=== PATIENT | female | born 1945 | race Caucasian/White ===

== ENCOUNTER → 2017-01-21 | Outpatient (CLI) | payer MEDICARE, OTHER | END | disposition home or self-care (01) | LOC: GMAB 12:18 | PROVIDERS: ATTEND Family Medicine | DX: N18.4 Chronic kidney disease, stage 4 (severe) (principal) ==

== ENCOUNTER → 2017-04-23 | Outpatient (CLI) | payer MEDICARE, OTHER | END | disposition home or self-care (01) | LOC: LAB.O 15:06 | PROVIDERS: ATTEND Urology | DX: R31.9 Hematuria, unspecified (principal) ==

== ENCOUNTER → 2017-05-20 | Outpatient (CLI) | payer MEDICARE, OTHER | END | disposition home or self-care (01) | LOC: GMAB 15:00 | PROVIDERS: ATTEND Family Medicine | DX: N18.4 Chronic kidney disease, stage 4 (severe) (principal) ==

== ENCOUNTER → 2017-08-28 | Outpatient (CLI) | payer MEDICARE, OTHER | LOC: GMAB 09:39 | PROVIDERS: ATTEND Family Medicine | DX: E03.9 Hypothyroidism, unspecified (principal); N18.4 Chronic kidney disease, stage 4 (severe); E78.2 Mixed hyperlipidemia; I10 Essential (primary) hypertension ==

== ENCOUNTER → 2018-08-24 | Outpatient (CLI) | payer MEDICARE, OTHER | LOC: GMAE 10:56 | PROVIDERS: ATTEND Family Medicine | DX: E03.9 Hypothyroidism, unspecified (principal) ==

== ENCOUNTER 2019-05-25 09:27 | Emergency (ER) | payer MEDICARE, OTHER ==
[2019-05-25 09:50] VITALS: TEMP 98.1
--- NOTE | 2019-05-25 09:52 | ED.PDOC ---
History of Present Illness - General Chief Complaint: Post Op Problems Stated Complaint: discomfort/edema to left leg Time Seen by Provider: 05/25/19 09:45 Source: patient, family Exam Limitations: no limitations - History of Present Illness Initial Comments: Pt states she had arterial stent placed in left leg on 05/20/[address] Galicia in [facility]. States she has been doing well and has noticed left leg edema that began 2 days after the procedure. Denies pain to leg, CP, SOB, cold foot or any color change. Has been ambulating w/o difficulty. Talked to Dr. Galicia today and was told to come to ED and have US to r/o blood clot. Allergies/Adverse Reactions: Allergies NO KNOWN ALLERGY Allergy (Verified 05/25/19 09:45) Home Medications: Ambulatory Orders Amlodipine Besylate 5 mg PO DAILY 05/25/19 RX: Clopidogrel Bisulfate 75 mg PO DAILY 05/25/19 Rosuvastatin Calcium 40 mg PO DAILY 05/25/19 Review of Systems - Review of Systems Constitutional: Denies: chills, fever, weakness EENTM: Denies: blurred vision, nose congestion, throat pain Respiratory: Denies: cough, short of breath Cardiology: States: edema - left leg. Denies: chest pain, palpitations, syncope Gastrointestinal/Abdominal: Denies: abdominal pain, diarrhea, vomiting Musculoskeletal: Denies: back pain, joint pain, muscle pain All other Systems: Reviewed and Negative Family Medical History - Family History Mother Family History: Unknown Physical Exam - Physical Exam General Appearance: Alert, Comfortable, No apparent distress Ears, Nose, Throat: normal ENT inspection, normal pharynx Neck: non-tender, full range of motion, supple Respiratory: chest non-tender, lungs clear, normal breath sounds, no respiratory distress, no accessory muscle use Cardiovascular/Chest: regular rate, rhythm, no murmur Gastrointestinal/Abdominal: non tender, soft Back Exam: normal inspection, no CVA tenderness Extremity: other - There is trace pretibial edema on left. Palpable PT and DP luses blaterally. No color or temperature difference between legs. Progress - Progress Progress: 05/25/19 09:54 Pt reports arterial stent to LLE 05/20. presents today for edema to LLE for several days and told by her Thermospray Operator to get US to R/O DVT. No temperature or clor change. Denies pain. Palpable pulses. will get US to evaluate. 05/25/19 10:45 Duplex US negative for DVT. Discussed with patient to elevate legs and will f/u with Dr. Galicia in 2-3 days for recheck. SRP given. - Results/Orders Results/Orders: CLINICAL HISTORY: r/o DVT. Left leg pain swelling. COMPARISON: None Available. TECHNIQUE: Soto-scale and doppler sonographic evaluation of the deep venous system of the left lower extremity. FINDINGS: Doppler evaluation shows normal color flow and normal phasicity and augmentation of the left common femoral vein, femoral vein, popliteal vein, greater saphenous vein, junction with the CFV. Also normal color flow and normal phasicity and augmentation of the peroneal, and posterior tibial vein. The left lower extremity deep veins were completely compressible; normal occlusion with transducer pressure. Soto-scale survey showed no echogenic thrombus within these veins. IMPRESSION: 1. Duplex ultrasound evaluation of the left lower extremity deep venous system showing no evidence of thrombosis. Departure - Departure Clinical Impression: Leg edema, left, PVD (peripheral vascular disease) Time of Disposition: 10:44 Disposition: Discharge to Home or Self Care Condition: Fair Departure Forms: ED Discharge - Pt. Copy, Patient Portal Self Enrollment Instructions: Dependent Edema (DC) Activity: increase activity as tolerated Referrals: ADRIANNE MANE MD [Primary Care Provider] - 1-2 Weeks Home Medications: Ambulatory Orders Amlodipine Besylate 5 mg PO DAILY 05/25/19 RX: Clopidogrel Bisulfate 75 mg PO DAILY 05/25/19 Rosuvastatin Calcium 40 mg PO DAILY 05/25/19 Comments: Follow up with Dr. Galicia in 2-3 days for recheck
--- NOTE | 2019-05-25 10:33 | US ---
EXAM DESCRIPTION: Venous,Lower Extremity LT: ULTRASOUND. CLINICAL HISTORY: r/o DVT. Left leg pain swelling. COMPARISON: None Available. TECHNIQUE: Soto-scale and doppler sonographic evaluation of the deep venous system of the left lower extremity. FINDINGS: Doppler evaluation shows normal color flow and normal phasicity and augmentation of the left common femoral vein, femoral vein, popliteal vein, greater saphenous vein, junction with the CFV. Also normal color flow and normal phasicity and augmentation of the peroneal, and posterior tibial vein. The left lower extremity deep veins were completely compressible; normal occlusion with transducer pressure. Soto-scale survey showed no echogenic thrombus within these veins. IMPRESSION: 1. Duplex ultrasound evaluation of the left lower extremity deep venous system showing no evidence of thrombosis. Electronically signed by: Jose Ribera MD 05/25/2019 10:31 AM [facility]
[2019-05-25 10:53] VITALS: BP 132/81; O2SAT 95
== END 2019-05-25 11:00 | disposition home or self-care (01) ==
LOC: ER 09:27
DX: R60.0 Localized edema (principal); I73.9 Peripheral vascular disease, unspecified; Z98.890 Other specified postprocedural states

== ENCOUNTER 2019-08-24 08:45 | Emergency (ER) | payer MEDICARE, OTHER ==
[2019-08-24 09:09] VITALS: TEMP 97.5
--- NOTE | 2019-08-24 10:10 | ED.PDOC ---
History of Present Illness - General Chief Complaint: Back Pain or Injury Stated Complaint: right sided low back pain Time Seen by Provider: 08/24/19 09:08 Source: patient Exam Limitations: no limitations - History of Present Illness Initial Comments: RIGHT LBP. LIFTED MATTRESS 1 WK AGO THUS SORE. HAD DEEP TISSUE MASSAGE YESTERDAY. WORSE TODAY. HURTS W/ MVMT. USUALLY WALKS 5 ME PER DAY FOR EXERCISE AND WATER AEROBICS 2X/ WK. Quality/Severity: moderate Back Pain Location: lumbar spine Method of Injury/Prior Injury: unknown Improving Factors: immobilization Worsening Factors: movement Associated Symptoms: denies symptoms Allergies/Adverse Reactions: Allergies NO KNOWN ALLERGY Allergy (Verified 05/25/19 09:45) Home Medications: Ambulatory Orders Amlodipine Besylate 5 mg PO DAILY 05/25/19 Clopidogrel Bisulfate 75 mg PO DAILY 05/25/19 Rosuvastatin Calcium 40 mg PO DAILY 05/25/19 Review of Systems - Review of Systems Constitutional: States: no symptoms reported EENTM: States: no symptoms reported Respiratory: States: no symptoms reported Cardiology: States: no symptoms reported. Denies: chest pain Gastrointestinal/Abdominal: States: no symptoms reported. Denies: abdominal pain Genitourinary: States: no symptoms reported Musculoskeletal: States: see HPI, back pain. Denies: neck pain Skin: States: no symptoms reported Neurological: Denies: numbness, paresthesia, tingling Endocrine: States: no symptoms reported Hematologic/Lymphatic: States: no symptoms reported All other Systems: Reviewed and Negative Past Medical History (General) - Patient Medical History Hx Seizures: No Hx Stroke: No Hx Asthma: No Hx of COPD: No Hx Cardiac Disorders: Yes Hx Congestive Heart Failure: No Hx Pacemaker: No Hx Hypertension: Yes Hx Thyroid Disease: No Hx Diabetes: No Surgical History: Hysterectomy - Vaccination History Hx Influenza Vaccination: Yes Hx Pneumococcal Vaccination: Yes - Social History Hx Tobacco Use: Yes Family Medical History - Family History Mother Family History: Unknown Physical Exam - Physical Exam General Appearance: Alert, Well Groomed Eyes, Ears, Nose, Throat Exam: normal ENT inspection Neck Exam: full range of motion, normal inspection Cardiovascular/Respiratory: regular rate, rhythm, no M/R/G, normal peripheral pulses, no JVD, normal breath sounds, no respiratory distress Peripheral Pulses: radial,right: 2+, radial,left: 2+ Gastrointestinal/Abdominal: normal bowel sounds, non tender, soft Back Exam: normal inspection, no CVA tenderness, decreased range of motion, muscle spasm, vertebral tenderness - RIGHT SI JOINT TTP. , other - POS R-SIDED: STRAIGHT LEG RAISE, TUNDE (FLEXION, ABDUCTION, EXTERNAL ROTATION), AND FADIR (FLEXION, ADDUCTION, INTERNAL ROTATION). Extremity Exam: no evidence of injury, normal range of motion, non-tender, no pedal edema Neurologic: transfer professor II-XII nml as tested, no motor/sensory deficits - MOTOR JUST LIMITED BY PAIN., alert, normal mood/affect Skin Exam: normal color, warm/dry Progress - Progress Progress: 08/24/19 10:27 PT DECLINES PAIN MED OFFER. 08/24/19 11:42 XRAYS NEG FOR ACUTE FRACTURE. POS CHRONIC O.A. LOW BACK STRAIN - REST, NSAIDS. Departure - Departure Clinical Impression: Facet arthropathy, lumbosacral, Spondylosis Acute lumbar myofascial strain Qualifiers: Encounter type: initial encounter Qualified Code(s): S39.012A - Strain of muscle, fascia and tendon of lower back, initial encounter Disposition: Discharge to Home or Self Care Condition: Good Departure Forms: ED Discharge - Pt. Copy, Patient Portal Self Enrollment Instructions: DI for Back Strain or Sprain Diet: resume usual diet Activity: increase activity as tolerated Referrals: ADRIANNE MANE MD [Primary Care Provider] - 1-2 Weeks Home Medications: Ambulatory Orders Amlodipine Besylate 5 mg PO DAILY 05/25/19 Clopidogrel Bisulfate 75 mg PO DAILY 05/25/19 Rosuvastatin Calcium 40 mg PO DAILY 05/25/19 Additional Instructions: Your daily 5 mile walk is outstanding. Just take a break from walking today and tomorrow to allow your back muscles to rest and heal, then resume your daily walking and water aerobics. Your back pain will improve with rest, time, and stretching exercises. Aleve or ibuprofen for 1 week will additionally help the pain.
--- NOTE | 2019-08-24 10:44 | RAD ---
EXAM DESCRIPTION: Lumbar Spine 3 Views: CR/DR/x-ray. CLINICAL HISTORY: 74 years Female pain in right lower back COMPARISON: None. TECHNIQUE: 3 Views lumbar spine. AP Lateral lumbosacral lateral spot L5-S1. FINDINGS: Lumbar type vertebra: 5. Transitional vertebrae: None. Disc spaces: Minimal disc space loss L5-S1. Anterior Endplate spurs at multiple levels.. Facet joints: Marked Sclerosis and narrowing bilateral L4-5 and bilateral L5-S1. Minimal narrowing and sclerosis of the more superior facet joints.. Posterior fusion cement. Possible foraminal narrowing unilaterally or bilaterally at L4-L5 and L5-S1 Compression deformities: None.. Bone Density: Decreased. Alignment: Lumbar levoscoliosis. Grade 1 Retrolisthesis L5-S1 and grade 1 anterolisthesis L4-L5. Abdomen: Dense atherosclerotic calcification of the abdominal aorta and proximal bilateral common iliac arteries. IMPRESSION: Decreased bone density. Multilevel facet arthrosis most severe at L4-5 and L5-S1, with suggestion of fusion cement. Grade 1 retrolisthesis L5-S1 and grade 1 anterolisthesis L4-L5. Endplate spondylosis L2-3 down to L5-S1. No compression type vertebral body fracture. Extensive atherosclerotic calcification of the abdominal aorta. Electronically signed by: Jose Ribera MD 08/24/2019 10:38 AM SECURITY AND COMPLIANCE ANALYST
[2019-08-24 11:56] VITALS: BP 147/72; O2SAT 97
== END 2019-08-24 11:55 | disposition home or self-care (01) ==
LOC: ER 08:45
DX: S39.012A Strain of muscle, fascia and tendon of lower back, initial encounter (principal); M47.817 Spondylosis without myelopathy or radiculopathy, lumbosacral region; I10 Essential (primary) hypertension; I51.9 Heart disease, unspecified; X50.0XXA Overexertion from strenuous movement or load, initial encounter; Y92.9 Unspecified place or not applicable; Z87.891 Personal history of nicotine dependence

== ENCOUNTER 2019-11-22 15:32 | Emergency (ER) | payer MEDICARE, OTHER ==
[2019-11-22] MEDS ORDERED: SODIUM CHLORIDE 0.9% (FLUSH) 10 ML SYG IV PRN (15:34)
[2019-11-22] MEDS ORDERED: ACETAMINOPHEN 500 MG TAB PO ONE (15:43)
--- NOTE | 2019-11-22 15:46 | ED.PDOC ---
History of Present Illness - General Time Seen by Provider: 11/22/19 15:33 Source: patient - History of Present Illness Initial Comments: 74 yo female with PMH of HTN who presents with cc of fall and head injury which occurred at home just [employer]. Reports tripped over a chainsaw case on the ground and fell forward and struck her Left forehead and left ear against the wall. Denies any LOC. Reports cc of pain to left forehead region, constant, 8/10 anh rity, throbbing, no radiation, worse with palpation, no meds taken for relief. Reports also a small bleeding laceration to the left ear. Denies any neck pain, weakness, numbness, vision/hearing changes, chest pain, dyspnea, abd pain, n/v, pelvic/hip pain, back pain. Takes daily aspirin but no other blood thinners. Unsure of date of last tetanus imm. Allergies/Adverse Reactions: Allergies NO KNOWN ALLERGY Allergy (Verified 11/22/19 15:43) Home Medications: Ambulatory Orders Amlodipine Besylate 5 mg PO DAILY 05/25/19 Clopidogrel Bisulfate 75 mg PO DAILY 05/25/19 Rosuvastatin Calcium 40 mg PO DAILY 05/25/19 Cephalexin Monohydrate [Keflex] 500 mg PO BID 5 Days #10 cap 11/22/19 Ondansetron Odt [Zofran ODT] 8 mg PO Q8H PRN 3 Days #10 tab 11/22/19 Review of Systems - Review of Systems Review of Systems: 11/22/19 15:46 as per HPI All other Systems: Reviewed and Negative Past Medical History (General) - Patient Medical History Hx Seizures: No Hx Stroke: No Hx Asthma: No Hx of COPD: No Hx Cardiac Disorders: Yes Hx Congestive Heart Failure: No Hx Pacemaker: No Hx Hypertension: Yes Hx Thyroid Disease: No Hx Diabetes: No - Vaccination History Hx Influenza Vaccination: Yes Hx Pneumococcal Vaccination: Yes - Social History Hx Tobacco Use: Yes Family Medical History - Family History Mother Family History: Unknown Physical Exam - Physical Exam General Appearance: Alert, Comfortable, No apparent distress Eye Exam: bilateral normal Ears, Nose, Throat: hearing grossly normal, normal pharynx, other - Left ear with 2 parallel approx 1.5 cm superficial linear vertical lacerations, the more lateral laceration with constant slow bleeding which ceases with pressure Neck: non-tender, full range of motion, supple, normal inspection, other - Head: approx 4x4 cm hematoma to left forehead with moderate ttp and bruising. Respiratory: chest non-tender, lungs clear, normal breath sounds, no respiratory distress, no accessory muscle use Cardiovascular/Chest: normal peripheral pulses, regular rate, rhythm, no edema, no gallop, no JVD, other - 2/6 systolic murmur best heard at LLSB Peripheral Pulses: radial,right: 2+, radial,left: 2+ Gastrointestinal/Abdominal: non tender, soft, no organomegaly Back Exam: normal inspection, no CVA tenderness, no vertebral tenderness Extremity: normal range of motion, non-tender, normal inspection, no pedal edema, no calf tenderness Neurologic: evp and chief operating officer II-XII nml as tested, no motor/sensory deficits, alert, normal mood/affect, oriented x 3 Skin Exam: normal color, warm/dry Progress - Progress Progress: 11/22/19 15:48 GLF, closed head injury -with pain to: L forehead -also with Left ear laceration -consider: ICH, c-spine frx, skull frx, concussion, other injuries. Fall appears mechanical in nature, consider organic etiologies but appears unlikely. -obtain CT head & c-spine, CXR, EKG, bloodwork -Tylenol 1000 mg for pain -repair ear lac, ensure tetanus imm UTD 11/22/19 17:05 -Left ear lacs cleansed copiously with Hibiclens and repaired without complication at bedside with Dermabond. Hemostasis achieved. -CT head & c-spine w/o acute processes. Chronic findings noted and I discussed these in detail with the patient to f/u with her PCP. -CXR with interstitial opacity of Right lower lobe, which I suspect is likely chronic scarring. Doubt PNA given lack of cough, fevers and with normal WBC. Will hold Abx at this time. -Labs with UA with 40-50 WBC, +nitrites concerning for UTI - will place on Keflex 500 mg BID x5 days, first dose here. K 3.1 (replenished PO in ED). Cr 1.4, which appears c/w baseline CKD. Remainder of labs pretty unremarkable. -Tetanus imm given. -Pt had some nausea but much improved with oral Zofran in ED. KOTHARI improving with Tylenol. Discussed possibility of concussion and will need to be very careful to avoid repeat head injury, benton in the near future. -dc to home in good condition. Advised strict head injury return precautions. F/u closely with PCP. Trino Zaman MD Billing #[id number] 11/22/19 15:34 Telemetry .ONCE Sodium Chloride 0.9% (Flush) [Saline Flush Syringe] 10 ml IV PRN PRN EKG Assessment ONCE Pulse Oximetry Assessment DAILY Chest,1 View [RAD] Stat 11/22/19 15:42 Cervical Spine [CT] Stat Head [CT] Stat 11/22/19 15:45 EKG STAT 11/22/19 16:14 Urine Culture Stat 11/23/19 09:00 Pulse Ox Daily Laboratory Results - last 24 hr 11/22/19 11/22/19 11/22/19 15:45 15:45 15:45 WBC 7.6 RBC 4.48 Hgb 13.0 Hct 37.5 MCV 83.7 MCH 28.9 MCHC 34.6 RDW 15.6 H Plt Count 290 MPV 6.3 L Absolute Neuts (auto) 3.30 Absolute Lymphs (auto) 3.10 Absolute Monos (auto) 0.80 Absolute Eos (auto) 0.30 Absolute Basos (auto) 0.00 Neutrophils % 43.9 Lymphocytes % 40.3 Monocytes % 11.1 H Eosinophils % 4.5 Basophils % 0.2 PT 10.3 INR 1.04 PTT (SP) 20.4 L Sodium Potassium Chloride Carbon Dioxide Anion Gap BUN Creatinine BUN/Creatinine Ratio Random Glucose Serum Osmolality Calcium Troponin I B-Natriuretic Peptide 182.0 H Urine Color Urine Appearance Urine pH Ur Specific [place] Urine Protein Urine Glucose (UA) Urine Ketones Urine Blood Urine Nitrite Urine Bilirubin Urine Urobilinogen Ur Leukocyte Esterase Urine RBC Urine WBC Ur Epithelial Cells Urine Bacteria 11/22/19 11/22/19 11/22/19 15:45 15:45 16:14 WBC RBC Hgb Hct MCV MCH MCHC RDW Plt Count MPV Absolute Neuts (auto) Absolute Lymphs (auto) Absolute Monos (auto) Absolute Eos (auto) Absolute Basos (auto) Neutrophils % Lymphocytes % Monocytes % Eosinophils % Basophils % PT INR PTT (SP) Sodium 134 L Potassium 3.1 L Chloride 102 Carbon Dioxide 22 Anion Gap 13.1 BUN 37 H Creatinine 1.43 H BUN/Creatinine Ratio 25.9 H Random Glucose 112 H Serum Osmolality 277.7 Calcium 9.4 Troponin I 0.02 B-Natriuretic Peptide Urine Color Dk yellow H Urine Appearance Cloudy Urine pH 6.0 Ur Specific [place] 1.025 Urine Protein 30 Urine Glucose (UA) Negative Urine Ketones Negative Urine Blood Trace-intact H Urine Nitrite Positive H Urine Bilirubin Negative Urine Urobilinogen 0.2 Ur Leukocyte Esterase Small H Urine RBC 0-1 Urine WBC 40-50 H Ur Epithelial Cells 1-3 Urine Bacteria 3+ H - EKG/XRAY/CT EKG: Sinus - NSR with occasional PACs, HR 90, no ST elevs, q waves noted in anteroseptal leads indicative of likely prior PA, min ST segment depressions in lateral leads nonspecific in nature, axis & intervals normal, no prior EKG for comparison XRAY: chest - question Right lower lobe interstitial infiltrate vs atelectasis vs scarring per my read, no other acute processes noted Procedures - Laceration/Wound Repair Left Ear Wound's Depth, Shape: superficial, linear Wound Explored: clean Betadine Prep?: No - Hibiclens Wound Repaired With: dermabond Departure - Departure Clinical Impression: Fall from ground level Traumatic hematoma of forehead Qualifiers: Encounter type: initial encounter Qualified Code(s): S00.83XA - Contusion of other part of head, initial encounter Closed head injury Qualifiers: Encounter type: initial encounter Qualified Code(s): S09.90XA - Unspecified injury of head, initial encounter Laceration of ear Qualifiers: Encounter type: initial encounter Laterality: left Qualified Code(s): S01.312A - Laceration without foreign body of left ear, initial encounter UTI (urinary tract infection) Qualifiers: Urinary tract infection type: acute cystitis Hematuria presence: without hematuria Qualified Code(s): N30.00 - Acute cystitis without hematuria Time of Disposition: 16:59 Disposition: Discharge to Home or Self Care Condition: Fair Instructions: Laceration Repair With Glue (DC), Closed Head Injury (DC) Diet: resume usual diet Activity: increase activity as tolerated Referrals: ADRIANNE MANE MD [Primary Care Provider] - 1-2 Weeks Prescriptions: Cephalexin Monohydrate [Keflex] 500 mg PO BID 5 Days #10 cap Ondansetron Odt [Zofran ODT] 8 mg PO Q8H PRN 3 Days #10 tab PRN Reason: Nausea Home Medications: Ambulatory Orders Amlodipine Besylate 5 mg PO DAILY 05/25/19 Clopidogrel Bisulfate 75 mg PO DAILY 05/25/19 Rosuvastatin Calcium 40 mg PO DAILY 05/25/19 Cephalexin Monohydrate [Keflex] 500 mg PO BID 5 Days #10 cap 11/22/19 Ondansetron Odt [Zofran ODT] 8 mg PO Q8H PRN 3 Days #10 tab 11/22/19 Additional Instructions: Remain well-hydrated and advance diet and activity level as tolerated. Continue taking Tylenol 650 mg every 6 hours as needed and ibuprofen 400 mg every 6 hours as needed for pain. Return if you develop any concerning symptoms such as rapidly worsening or severe headache, vision/hearing changes, weakness, numbness, confusion, trouble standing or walking, or other concerning symptoms.
[2019-11-22 15:47] VITALS: TEMP 96.5
[2019-11-22] MEDS ORDERED: POTASSIUM CHLORIDE 20 MEQ TAB PO ONE (16:10)
[2019-11-22] MEDS ORDERED: CHLORHEXIDINE GLUCONATE 4 % 15 ML UD TOP ONE (16:20)
[2019-11-22] MEDS ORDERED: CEPHALEXIN MONOHYDRATE 250 MG CAP PO ONE (16:32)
[2019-11-22] MEDS ORDERED: TETANUS,DIPHTHERIA,PERTUSSIS 1 EA SYG IM ONE (16:33)
--- NOTE | 2019-11-22 16:43 | RAD ---
EXAM DESCRIPTION: Chest,1 View: CR/DR/XR. CLINICAL HISTORY: 74 years Female ground level fall COMPARISON: CT scan of the neck and head on this visit. TECHNIQUE: ONE VIEW PORTABLE. AP 359 PM hours, upright position. FINDINGS: Interstitial markings bilaterally. Increased density in the right lung base compared to the left could represent a contusion versus a chronic density or focal infiltrate. Bilateral apical pleural thickening. Heart not enlarged mediastinum no widening. Bony vascularity not increased. Arthrosis in the shoulders and thoracic dextroscoliosis. No pneumothorax or pleural effusion. IMPRESSION: Bilateral interstitial process appears chronic. Focal density in the right base could represent scarring, focal contusion or focal infiltrate. Correlate with clinical findings. No pulmonary vascular congestion. No pleural effusion or pneumothorax. Electronically signed by: Jose Ribera MD 11/22/2019 4:42 PM CDT
[2019-11-22] MEDS ORDERED: ONDANSETRON ODT 8 MG TAB ONE (16:45)
[2019-11-22] MEDS ORDERED: ONDANSETRON ODT 8 MG TAB SL ONE (16:46)
--- NOTE | 2019-11-22 16:54 | CT ---
EXAM DESCRIPTION: Head: Computed Tomography. CLINICAL HISTORY: fall, closed head injury, no LOC COMPARISON: CT scan of the cervical spine and chest radiograph today. TECHNIQUE: Non-helical axial scans through the skull and brain, at 2 x 20 mm intervals, non-contrast. Coronal and sagittal 2.0 mm reconstructions. Total Exam DLP: 860 mGy-cm. This exam was performed according to our departmental dose-optimization program which includes automated exposure control, adjustment of the mA and/or kV according to patient size and/or. Use of iterative reconstruction technique; to reduce radiation dose to as low as reasonably achievable (ALARA). FINDINGS: No hemorrhage, no mass-effect, and no midline shift. Bilateral periventricular white matter low-density along the subcortical white matter low-density relatively symmetric in the cerebral hemispheres. No abnormal increased parenchymal density. Vascular calcifications anterior and posterior especially the left vertebral artery posteriorly.; physiologic calcifications in the pineal gland and choroid plexus. No effacement or displacement of the ventricles, CSF spaces, or subdural spaces. Extra-axial spaces abutting the vertex slightly prominent all 3 lobes No extra axial fluid collection or hemorrhage. No gross abnormalities of the bony calvarium. Large heterogeneous left frontal scalp mass with central low-density superior to the left arm Included paranasal sinuses and mastoid air cells are well - aerated. IMPRESSION: 1. No hemorrhage, no mass effect, no midline shift. Mild cortical atrophy. No extra-axial fluid or hemorrhage. Atherosclerotic vascular disease, especially the left vertebral artery. Periventricular white matter and subcortical white matter density changes most likely related to cerebral microvascular disease and/or aging. 2. CT scans are insensitive for detecting small CVAs in the first 24 hours after onset. Evaluation of the brain stem is also limited. If symptoms persist, consider NON-EMERGENT MRI scan of the brain with diffusion imaging. Electronically signed by: Jose Ribera MD 11/22/2019 4:52 PM CDT
--- NOTE | 2019-11-22 17:08 | CT ---
EXAM DESCRIPTION: Cervical Spine: Computed Tomography. CLINICAL HISTORY: 74 years Female fall, closed head injury, no LOC COMPARISON: None Available. TECHNIQUE: Spiral, axial 2.5 x 2.5 mm scans through the cervical spine without contrast. Coronal and sagittal 2.0 mm Reconstructions. No adverse reactions. Total Exam DLP: 336 mGy-cm. This exam was performed according to our departmental dose-optimization program which includes automated exposure control, adjustment of the mA and/or kV according to patient size and/or use of iterative reconstruction technique; to reduce radiation dose to as low as reasonably achievable (ALARA). FINDINGS: Arthrosis of the atlantoaxial joint, and the bilateral atlantoaxial occipital joints. Bilateral C1-C2 facets are unremarkable. Posterior bulge of soft tissue at the atlantoaxial joint but not abutting or compressing the cord. Multiple levels of unilateral or bilateral facet arthrosis predominantly C2-C3, C3-C4, C4-C5, C5-C6, and C6-C7. No perched or locked facets or facet fractures. No vertebral body compression type fractures or posttraumatic spondylolisthesis. Minimal disc space narrowing at C6-C7 with posterior disc bulge. No large disc protrusions or herniations into the canal or foramina with no soft tissue mass. Neural foraminal narrowing at multiple levels which appears chronic. Bilateral interstitial lung disease and pleural thickening and emphysematous parenchymal blebs more left than right. No paravertebral paracervical soft tissue mass. Included lymph nodes appear symmetric. No significant asymmetry of the airway. IMPRESSION: No CT evidence of acute posttraumatic abnormality of the cervical spine or soft tissues. 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 Bilateral apical lung disease. Please see chest radiographs today. Electronically signed by: Jose Ribera MD 11/22/2019 5:06 PM CDT
[2019-11-22 17:29] VITALS: BP 115/86; O2SAT 99
== END 2019-11-22 17:29 | disposition home or self-care (01) ==
LOC: ER 15:32
DX: S00.83XA Contusion of other part of head, initial encounter (principal); S09.90XA Unspecified injury of head, initial encounter; S01.312A Laceration without foreign body of left ear, initial encounter; N30.00 Acute cystitis without hematuria; I10 Essential (primary) hypertension; Z79.82 Long term (current) use of aspirin; Z87.891 Personal history of nicotine dependence; W01.0XXA Fall on same level from slipping, tripping and stumbling without subsequent striking against object, initial encounter; Y92.009 Unspecified place in unspecified non-institutional (private) residence as the place of occurrence of the external cause

== ENCOUNTER → 2020-06-28 | Outpatient (CLI) | payer MEDICARE, OTHER | LOC: GMAE 11:25 | PROVIDERS: ATTEND Family Medicine | DX: R30.0 Dysuria (principal); R07.82 Intercostal pain ==

== ENCOUNTER → 2020-07-04 | Outpatient (CLI) | payer MEDICARE, OTHER ==
--- NOTE | 2020-07-05 08:07 | US ---
EXAM DESCRIPTION: Abdomen,Complete: Ultrasound. CLINICAL HISTORY: 75 years Female INTERCOSTAL PAIN COMPARISON: None Available. TECHNIQUE: Transabdominal scanning: grayscale and Doppler modes. FINDINGS: Gallbladder: normal size, shape, echogenicity; no intraluminal stones or sludge. No fluid around the gallbladder. No wall thickening. 1.4 mm. Non-tender with transducer pressure. Common bile duct: caliber 4.5 mm within normal limits. Liver: normal echogenicity; contour liver capsule smooth where seen. No fluid around the liver. Intrahepatic biliary ducts normal caliber. Doppler hepatopedal flow and normal caliber portal vein 9 mm. Long axis right lobe 14.0 cm. Pancreas: normal size and echogenicity. Duct not seen. Complete abdominal aorta: Normal caliber from the proximal segment to the distal bifurcation.. Intimal wall atherosclerotic changes. IVC: visualized and normal caliber. Right kidney: long axis measures 10.5 cm; volume 72.1 mL.. Cortical echogenicity is normal. Cortical thickness 10 mm. No echogenic stones; no hydronephrosis. Left kidney: long axis measures 8.6 cm; volume 75.4 mL.. Cortical echogenicity tab. 11 mm cortical thickness.. No echogenic stones; no hydronephrosis. Spleen: Normal. No focal lesions.. 8.0 cm long axis. Other: None. IMPRESSION: 1. Normal sonography of the gallbladder and common bile duct. No wall thickening, no fluid, nontender. Normal sonography of the spleen. 2. Liver and pancreas are unremarkable. 3. Bilateral kidneys show thin cortex with normal echogenicity. Left kidney small but larger than right kidney. Normal caliber of the abdominal aorta and IVC. Electronically signed by: Jose Ribera MD 07/05/2020 8:06 AM [facility]
== END ==
LOC: US 08:06
PROVIDERS: ATTEND Family Medicine
DX: R07.82 Intercostal pain (principal); N28.9 Disorder of kidney and ureter, unspecified

== ENCOUNTER → 2020-07-25 | Outpatient (CLI) | payer MEDICARE, OTHER | LOC: GMAE 12:16 | PROVIDERS: ATTEND Family Medicine | DX: R07.82 Intercostal pain (principal) ==